=== PATIENT | female | born 1950 | race Caucasian/White ===

== ENCOUNTER 2017-12-06 11:41 | Emergency (ER) | payer OTHER ==
[~2017-12-06] VITALS: Ht 157.5 cm; Wt 63.5 kg
[~2017-12-06 11:41] MED LIST: LORA1 PO; METO50ER PO
[2017-12-06] MEDS ORDERED: LISI20 PO (15:36)
[2017-12-06] MEDS ORDERED: "\\\"STATIN\\\"" (15:36)
[2017-12-06] MEDS ORDERED: CLON.3TP (15:36)
== END 2017-12-06 15:57 | disposition home or self-care (01) ==
LOC: ER 11:41
DX: S00.83XA Contusion of other part of head, initial encounter (principal); S00.11XA Contusion of right eyelid and periocular area, initial encounter; F17.200 Nicotine dependence, unspecified, uncomplicated; Z79.899 Other long term (current) drug therapy; Z90.710 Acquired absence of both cervix and uterus; W01.0XXA Fall on same level from slipping, tripping and stumbling without subsequent striking against object, initial encounter
CPT/HCPCS: 70450; 99284

== ENCOUNTER 2020-10-23 18:43 | Emergency (ER) | payer OTHER ==
[~2020-10-23] VITALS: Ht 167.6 cm; Wt 74.8 kg
[~2020-10-23 18:43] MED LIST changes: +"\\\"STATIN\\\""; +CLON.3TP; +LISI20 PO
[2020-10-23] MEDS ORDERED: CHLO25 PO (19:48)
[2020-10-23 20:48] LABS: BASOPHILS ABSOLUTE AUTO 0.04 K/mm3 (0.00-0.23); BASOPHILS PERCENT AUTO 1 % (0-2); EOSINOPHILS ABSOLUTE AUTO 0.18 K/mm3 (0.00-0.68); EOSINOPHILS PERCENT AUTO 3 % (0-6); Hematocrit 40.5 % (33.0-51.0); IMMATURE GRAN ABSOLUTE AUTO 0.01 K/mm3 (0.00-0.10); IMMATURE GRAN PERCENT AUTO 0 % (0-1); LYMPHOCYTES ABSOLUTE AUTO 2.77 K/mm3 (0.84-5.20); LYMPHOCYTES PERCENT AUTO 44 % (21-46); MONOCYTES ABSOLUTE AUTO 0.43 K/mm3 (0.16-1.47); MONOCYTES PERCENT AUTO 7 % (4-13); Mean Corpuscular HGB 31.6 pg (26.0-34.0); Mean Corpuscular HGB Conc 32.1 g/dL (31.5-36.5); Mean Corpuscular Volume 98 fL (80-100); Mean Platelet Volume 9.8 fL (9.1-12.4); NEUTROPHILS ABSOLUTE AUTO 2.94 K/mm3 (1.96-9.15); NEUTROPHILS PERCENT AUTO 46 % (41-73); Platelet Count 269 K/mm3 (150-400); RDW Coefficient Variation 12.9 % (11.7-14.2); RDW Standard Deviation 46.1 fL (35.1-46.3); Red Blood Cell Count 4.12 M/mm3 (3.80-5.20); White Blood Cell Count 6.37 K/mm3 (4.00-11.30)
[2020-10-23 20:58] LABS: Anion Gap 12 mmol/L (6-16); Blood Urea Nitrogen 28 mg/dL (8-24); Bun/Creatinine Ratio 37.5 (12.0-20.0); CO2, Blood 24 mmol/L (21-32); Calcium, Blood 8.3 mg/dL (8.5-10.1); Chloride, Blood 105 mmol/L (98-108); Creatinine, Blood 0.75 mg/dL (0.40-1.00); Ethanol (Alcohol), Blood, Med 204 mg/dL; Glomerular Filtration Rate >60 (60-); Glucose, Blood 94 mg/dL (70-99); Potassium, Blood 3.4 mmol/L (3.5-5.5); Sodium, Blood 141 mmol/L (136-145)
== END 2020-10-23 23:00 | disposition home or self-care (01) ==
LOC: ER 18:43
PROVIDERS: Student in an Organized Health Care Education/Training Program
DX: F10.129 Alcohol abuse with intoxication, unspecified (principal); F41.0 Panic disorder [episodic paroxysmal anxiety]; F17.210 Nicotine dependence, cigarettes, uncomplicated; Z91.81 History of falling; Z79.899 Other long term (current) drug therapy
CPT/HCPCS: 70450; 80048; 85025; 96360; 99284-25; G0480; J7120

== ENCOUNTER 2020-10-24 15:43 | Emergency (ER) | payer OTHER ==
[~2020-10-24] VITALS: Ht 157.5 cm; Wt 67.6 kg
[~2020-10-24 15:43] MED LIST changes: +CHLO25 PO
[2020-10-24 16:31] LABS: BASOPHILS ABSOLUTE AUTO 0.05 K/mm3 (0.00-0.23); BASOPHILS PERCENT AUTO 1 % (0-2); EOSINOPHILS ABSOLUTE AUTO 0.11 K/mm3 (0.00-0.68); EOSINOPHILS PERCENT AUTO 2 % (0-6); Hematocrit 38.8 % (33.0-51.0); Hemoglobin 12.6 g/dL (11.5-16.0); IMMATURE GRAN ABSOLUTE AUTO 0.01 K/mm3 (0.00-0.10); IMMATURE GRAN PERCENT AUTO 0 % (0-1); LYMPHOCYTES PERCENT AUTO 29 % (21-46); MONOCYTES ABSOLUTE AUTO 0.56 K/mm3 (0.16-1.47); MONOCYTES PERCENT AUTO 8 % (4-13); Mean Corpuscular HGB 31.9 pg (26.0-34.0); Mean Corpuscular HGB Conc 32.5 g/dL (31.5-36.5); Mean Corpuscular Volume 98 fL (80-100); Mean Platelet Volume 9.5 fL (9.1-12.4); NEUTROPHILS ABSOLUTE AUTO 4.52 K/mm3 (1.96-9.15); NEUTROPHILS PERCENT AUTO 62 % (41-73); Platelet Count 259 K/mm3 (150-400); RDW Coefficient Variation 12.9 % (11.7-14.2); RDW Standard Deviation 46.8 fL (35.1-46.3); Red Blood Cell Count 3.95 M/mm3 (3.80-5.20); White Blood Cell Count 7.35 K/mm3 (4.00-11.30)
[2020-10-24 17:13] LABS: Alanine Aminotransfer (ALT/SGP 45 U/L (12-78); Albumin, Blood 3.2 g/dL (3.4-5.0); Albumin/Globulin Ratio 0.9 (0.8-1.8); Alk Phos 81 U/L (50-136); Anion Gap 14 mmol/L (6-16); Aspartate Aminotrans (AST/SGOT 36 U/L (12-37); Bilirubin, Total 0.6 mg/dL (0.1-1.0); Blood Urea Nitrogen 24 mg/dL (8-24); Bun/Creatinine Ratio 37.4 (12.0-20.0); CO2, Blood 20 mmol/L (21-32); Calcium, Blood 8.3 mg/dL (8.5-10.1); Chloride, Blood 105 mmol/L (98-108); Creatinine, Blood 0.64 mg/dL (0.40-1.00); Globulin, Blood 3.5 g/dL (2.2-4.0); Glomerular Filtration Rate >60 (60-); Glucose, Blood 123 mg/dL (70-99); Potassium, Blood 3.4 mmol/L (3.5-5.5); Sodium, Blood 139 mmol/L (136-145); Total Protein, Blood 6.7 g/dL (6.4-8.2)
[2020-10-24 19:24] LABS: International Normalized Ratio 0.96; Prothrombin Time Results 10.3 Sec (9.7-11.5)
== END 2020-10-24 20:25 | disposition home or self-care (01) ==
LOC: ER 15:43
PROVIDERS: Physician Assistant
DX: I60.9 Nontraumatic subarachnoid hemorrhage, unspecified (principal); F17.200 Nicotine dependence, unspecified, uncomplicated; Z79.899 Other long term (current) drug therapy
CPT/HCPCS: 36415; 70450; 80053; 85025; 85610; 93005; 93010; 96374; 99284-25; G0480; J3010

== ENCOUNTER 2020-11-06 19:09 | Emergency (ER) | payer OTHER ==
[~2020-11-06] VITALS: Ht 160 cm; Wt 74.8 kg
[2020-11-06 19:36] LABS: BASOPHILS ABSOLUTE AUTO 0.06 K/mm3 (0.00-0.23); BASOPHILS PERCENT AUTO 1 % (0-2); EOSINOPHILS ABSOLUTE AUTO 0.19 K/mm3 (0.00-0.68); EOSINOPHILS PERCENT AUTO 2 % (0-6); Hematocrit 33.9 % (33.0-51.0); Hemoglobin 11.1 g/dL (11.5-16.0); IMMATURE GRAN ABSOLUTE AUTO 0.04 K/mm3 (0.00-0.10); IMMATURE GRAN PERCENT AUTO 1 % (0-1); LYMPHOCYTES ABSOLUTE AUTO 3.22 K/mm3 (0.84-5.20); LYMPHOCYTES PERCENT AUTO 38 % (21-46); MONOCYTES ABSOLUTE AUTO 0.71 K/mm3 (0.16-1.47); MONOCYTES PERCENT AUTO 8 % (4-13); Mean Corpuscular HGB 32.4 pg (26.0-34.0); Mean Corpuscular HGB Conc 32.7 g/dL (31.5-36.5); Mean Corpuscular Volume 99 fL (80-100); Mean Platelet Volume 10.3 fL (9.1-12.4); NEUTROPHILS ABSOLUTE AUTO 4.34 K/mm3 (1.96-9.15); NEUTROPHILS PERCENT AUTO 51 % (41-73); Platelet Count 286 K/mm3 (150-400); RDW Coefficient Variation 12.8 % (11.7-14.2); Red Blood Cell Count 3.43 M/mm3 (3.80-5.20); White Blood Cell Count 8.56 K/mm3 (4.00-11.30)
[2020-11-06 19:58] LABS: Anion Gap 10 mmol/L (6-16); Blood Urea Nitrogen 24 mg/dL (8-24); Bun/Creatinine Ratio 44.4 (12.0-20.0); CO2, Blood 26 mmol/L (21-32); Calcium, Blood 8.4 mg/dL (8.5-10.1); Chloride, Blood 103 mmol/L (98-108); Creatinine, Blood 0.54 mg/dL (0.40-1.00); Glomerular Filtration Rate >60 (60-); Glucose, Blood 85 mg/dL (70-99); Potassium, Blood 3.9 mmol/L (3.5-5.5); Sodium, Blood 139 mmol/L (136-145)
[2020-11-06 19:59] LABS: Ethanol (Alcohol), Blood, Med 301 mg/dL
[2020-11-06 20:38] LABS: Source, Urine Clean Catch
[2020-11-06 20:44] LABS: Appearance, Urine Clear (Clear); Bilirubin, Urine Neg (Neg); Blood, Urine Neg (Neg); Color, Urine Yellow (P-Yellow); Glucose Qualitative, Urine Neg (Neg); Ketones, Urine Neg (Neg); Leukocyte Esterase, Urine 2+ (Neg); Nitrite, Urine Pos (Neg); Protein, Urine Neg (Neg); Urobilinogen, Urine NORM (Normal)
[2020-11-06 20:45] LABS: Bacteria Many /hpf; Red Blood Cells, Urine 0-2 /hpf (0-2); Squamous Epithelial Cells Few /hpf (Few)
[2020-11-07] MEDS ORDERED: CIPR500 PO (00:38)
== END 2020-11-07 00:34 | disposition home or self-care (01) ==
LOC: ER 19:09 → EOR 21:27 → ER 11-07 00:34
PROVIDERS: Emergency Medicine
DX: F10.129 Alcohol abuse with intoxication, unspecified (principal); N39.0 Urinary tract infection, site not specified; F17.200 Nicotine dependence, unspecified, uncomplicated; Z79.899 Other long term (current) drug therapy; Y90.8 Blood alcohol level of 240 mg/100 ml or more
CPT/HCPCS: 70450; 80048; 81001; 85025; 87077; 87086; 87186; 99285-25; A9270; G0480; P9612

== ENCOUNTER 2022-08-23 08:45 | Day surgery (SDC) | payer OTHER ==
[~2022-08-23] VITALS: Ht 157.5 cm; Wt 74.2 kg
[~2022-08-23 08:45] MED LIST changes: +ALPR.25 PO; +CIPR500 PO; +ESZO2 PO; +NEBI5 PO
--- NOTE | 2022-08-23 09:27 | NUR ---
08/23/22 0927 Anne-Marie Odom 0913 PLEDGET AT [id number]
== END 2022-08-23 10:34 | disposition home or self-care (01) ==
LOC: ORSCSDS 08:45
PROVIDERS: Ophthalmology
PROC: 08DJ3ZZ Extraction of Right Lens, Percutaneous Approach (ICD-10-PCS; principal; 2022-08-23 10:00)
DX: H25.11 Age-related nuclear cataract, right eye (principal); I10 Essential (primary) hypertension; F41.9 Anxiety disorder, unspecified; Z79.899 Other long term (current) drug therapy
CPT/HCPCS: J2001; J2250; J3010; J3301; J7040; V2632

== ENCOUNTER 2022-11-22 06:45 | Day surgery (SDC) | payer OTHER ==
[~2022-11-22] VITALS: Ht 157.5 cm; Wt 73.8 kg
[2022-11-22] MEDS ORDERED: HYDR1TAB94 (07:00)
[2022-11-22] MEDS ORDERED: Cymbalta20 MG (07:00)
[2022-11-22] MEDS ORDERED: TRELEGY ELLIPT1 EACH (07:00)
[2022-11-22] MEDS ORDERED: OXYB5 (07:01)
[2022-11-22] MEDS ORDERED: PROAIR DIGIHAL90 MCG (07:01)
--- NOTE | 2022-11-22 07:09 | NUR ---
11/22/22 0709 Sravanthi Lorenz TETRACAINE TO LEFT EYE @ 0700 PLEDGET TO LEFT EYE @ 0702 BY [facility].ALBERTINAG
--- NOTE | 2022-11-22 09:05 | NUR ---
11/22/22 0905 Ashtyn Campa 0840: PATIENT ASSISTED TO BR IN WC WITH RN IN BR FOR SBA.
== END 2022-11-22 08:57 | disposition home or self-care (01) ==
LOC: ORSCSDS 06:45
PROVIDERS: Ophthalmology
PROC: 08DK3ZZ Extraction of Left Lens, Percutaneous Approach (ICD-10-PCS; principal; 2022-11-22 08:00)
DX: H25.12 Age-related nuclear cataract, left eye (principal); I10 Essential (primary) hypertension; R06.02 Shortness of breath; F17.210 Nicotine dependence, cigarettes, uncomplicated; Z79.899 Other long term (current) drug therapy
CPT/HCPCS: J2001; J3301; J7040; V2632

== ENCOUNTER 2023-01-13 20:01 | Observation (INO) | payer OTHER ==
[~2023-01-13] VITALS: Ht 157.5 cm; Wt 72.5 kg
[~2023-01-13 20:01] MED LIST changes: +Cymbalta20 MG; +HYDR1TAB94; +OXYB5; +PROAIR DIGIHAL90 MCG; +TRELEGY ELLIPT1 EACH
[2023-01-13 20:40] LABS: Hematocrit 41.5 % (33.0-51.0); Hemoglobin 13.3 g/dL (11.5-16.0); Mean Corpuscular HGB 29.7 pg (26.0-34.0); Mean Corpuscular Volume 93 fL (80-100); Mean Platelet Volume 10.2 fL (9.1-12.4); Platelet Count 324 K/mm3 (150-400); RDW Coefficient Variation 13.9 % (11.7-14.2); RDW Standard Deviation 47.4 fL (35.1-46.3); Red Blood Cell Count 4.48 M/mm3 (3.80-5.20); White Blood Cell Count 10.01 K/mm3 (4.00-11.30)
[2023-01-13 20:58] LABS: Ethanol (Alcohol), Blood, Med <3 mg/dL
[2023-01-13 21:04] LABS: Base Excess Venous 4.6 mmol/L; Bicarbonate Venous 27.1 mmol/L (24.0-30.0); PCO2 Venous 56.2 mmHg (38-42); pH Blood Venous 7.34 (7.34-7.37)
[2023-01-13 21:04] LABS: Acetaminophen, Random <2.0 ug/mL (10.0-30.0); Alanine Aminotransfer (ALT/SGP 14 U/L (12-78); Albumin/Globulin Ratio 0.7 (0.8-1.8); Alk Phos 65 U/L (50-136); Anion Gap 6 mmol/L (6-16); Aspartate Aminotrans (AST/SGOT 13 U/L (12-37); Bilirubin, Total 0.2 mg/dL (0.1-1.0); Blood Urea Nitrogen 27 mg/dL (8-24); Bun/Creatinine Ratio 41.2 (12.0-20.0); CO2, Blood 28 mmol/L (21-32); Calcium, Blood 8.7 mg/dL (8.5-10.1); Chloride, Blood 101 mmol/L (98-108); Creatinine, Blood 0.66 mg/dL (0.40-1.00); Globulin, Blood 4.2 g/dL (2.2-4.0); Glomerular Filtration Rate 94 (60-); Glucose, Blood 151 mg/dL (70-99); Potassium, Blood 3.9 mmol/L (3.5-5.5); Sodium, Blood 135 mmol/L (136-145); Total Protein, Blood 7.2 g/dL (6.4-8.2)
[2023-01-13 21:22] LABS: BAND PERCENT MAN 3 % (0-8); BASOPHILS PERCENT MAN 0 % (0-2); EOSINOPHILS PERCENT MAN 0 % (0-6); LYMPHOCYTES PERCENT MAN 14 % (21-46); METAMYELOCYTE PERCENT MAN 1 % (0-0); MONOCYTES PERCENT MAN 13 % (4-13); SEG NEUTROPHILS PERCENT MAN 69 % (41-73); TOTAL CELLS COUNTED 100
[2023-01-13 22:28] LABS: Source, Urine Straight Cath
[2023-01-13 22:30] LABS: Bilirubin, Urine Neg (Neg); Blood, Urine 1+ (Neg); Glucose Qualitative, Urine Neg (Neg); Ketones, Urine Neg (Neg); Leukocyte Esterase, Urine Neg (Neg); Nitrite, Urine Pos (Neg); Protein, Urine 2+ (Neg); Urobilinogen, Urine NORM (Normal)
[2023-01-13 22:36] LABS: Appearance, Urine Clear (Clear); Color, Urine Yellow (P-Yellow)
[2023-01-13 22:37] LABS: Bacteria Many /hpf; Red Blood Cells, Urine 0-2 /hpf (0-2); Squamous Epithelial Cells Few /hpf (Few); White Blood Cells, Urine 0-2 /hpf (0-5)
[2023-01-13 22:49] LABS: U Amphetamine Screen Not Detected; U Barbituate Screen Not Detected; U Benzodiazapine Screen DETECTED; U Buprenorphine Screen Not Detected; U Cannabinoids Screen Not Detected; U Cocaine Screen Not Detected; U Methadone Screen Not Detected; U Methamphetamine Screen Not Detected; U Opiates Screen DETECTED; U Oxycodone Screen DETECTED; U Phencyclidine Screen Not Detected; U Propoxyphene Screen Not Detected
[2023-01-13 22:50] LABS: Influenza A, PCR NEGATIVE (NEGATIVE); Influenza B, PCR NEGATIVE (NEGATIVE); Resp Syncytial Virus, PCR NEGATIVE (NEGATIVE); SARS-Cov-2 (COVID-19) PCR, MMC NEGATIVE (NEGATIVE)
[2023-01-13] MEDS ORDERED: MONDOXYNE NL100 MG PO (23:33)
--- NOTE | 2023-01-14 | NUR ---
ADMIT NOTE; PT ARRIVES TO THE FLOOR VIA ED GURNERY. THE PT IS AXO X2-3, WITH SOME CONFUSION. THE PT IS AWAKE BUT SLOW TO RESPOND AND VERY [place]. THE PT IS ON 3L NC UPON ADMIT SATING 91%. THE PT HAS A CONGESTED SOUNDING COUGH UPON ADMIT, BREATHING IS NON LABORED. THE PT DENIES ANY PAIN OR ANY ACUTE NEEDS AT THIS TIME. UPON ADMIT THE PT IS TRANSFERED TO THE HOSPITAL BED FROM THE ED GURNEY VIA SLIDER SHEET.
--- NOTE | 2023-01-14 05:48 | NUR ---
SHIFT SUMMARY; NO ACUTE CHANGES OVERNIGHT. THE PT IS AXO X2-3, FPRGETFULLNESS. THE PT IS A 1 ASSIST WITH A FWW TO THE BATHROOM. THE PT DOES NOT ALWAYS USE A CALL LIGHT, THEREFORE THE BED ALARM IS ON DUE TO THE PTS WEAKNESS AND INSTABILITY. THE PT HAS 3L NC ON, O2 SATS HAVE BEEN GREATER THAN 92%. THE PT DENIES ANY SOB, PAIN, CHEST PAIN/PRESSURE OR N/V THIS SHIFT. CURRENTLY THE PT IS SLEEPING IN BED WITH THE BED IN THE LOWEST POSWITION AND THE CALL LIGHT AT BEDSIDE.
--- NOTE | 2023-01-14 12:51 | NUR ---
PT REFUSED PE STUDY. STATES SHE WANTS TO TALK TO HER PCP AND WILL DO STUDIES OUTPT IF NEED BE.
[2023-01-14] MEDS ORDERED: METPRE4DP PO (15:10)
--- NOTE | 2023-01-14 16:26 | NUR ---
DISCHARGE: PT D/C VIA AUTOMOBILE WITH DAUGHTER. PORTABLE O2 BROUGHT TO ROOM. PT PULLED OUT IV PRIOR TO D/C. DISCHARGE INSTRUCTIONS GONE OVER BY DARLINE MIRELES RN. NEW RX MEDS SENT OVER TO [facility] IN [place]. ALL BELONGINGS SENT WITH PT.
== END 2023-01-14 15:52 | disposition home or self-care (01) ==
LOC: ER 20:01 → MEDS 20:02 → ER 23:44 → MEDS 23:44 → ERHOLD 23:44 → MEDS 23:58
PROVIDERS: Emergency Medicine; ADMIT Hospitalist
DX: J96.01 Acute respiratory failure with hypoxia (principal); J18.9 Pneumonia, unspecified organism; J44.9 Chronic obstructive pulmonary disease, unspecified; R77.8 Other specified abnormalities of plasma proteins; I10 Essential (primary) hypertension; Z20.822 Contact with and (suspected) exposure to COVID-19; Z79.899 Other long term (current) drug therapy; F17.210 Nicotine dependence, cigarettes, uncomplicated
CPT/HCPCS: 0241U; 36415; 71045; 80053; 81001; 82803; 83880; 84443; 84484; 85025; 85379; 93005; 93010; 94640; 94664; 94760; 94761; A9270; G0480; J0456; J0696; J2405; J2930; J7030; J7050

== ENCOUNTER 2023-08-13 15:22 | Inpatient (IN) | payer OTHER ==
[~2023-08-13] VITALS: Ht 160 cm; Wt 72.6 kg
[~2023-08-13 15:22] MED LIST changes: +METPRE4DP PO; +MONDOXYNE NL100 MG PO; -PROAIR DIGIHAL90 MCG; +PROAIR DIGIHAL90 MCG INH
[2023-08-13 16:06] LABS: BASOPHILS ABSOLUTE AUTO 0.06 K/mm3 (0.00-0.23); BASOPHILS PERCENT AUTO 1 % (0-2); EOSINOPHILS ABSOLUTE AUTO 0.15 K/mm3 (0.00-0.68); EOSINOPHILS PERCENT AUTO 1 % (0-6); Hematocrit 41.9 % (33.0-51.0); Hemoglobin 13.7 g/dL (11.5-16.0); IMMATURE GRAN ABSOLUTE AUTO 0.27 K/mm3 (0.00-0.10); IMMATURE GRAN PERCENT AUTO 2 % (0-1); LYMPHOCYTES ABSOLUTE AUTO 1.89 K/mm3 (0.84-5.20); LYMPHOCYTES PERCENT AUTO 15 % (21-46); MONOCYTES ABSOLUTE AUTO 1.18 K/mm3 (0.16-1.47); MONOCYTES PERCENT AUTO 9 % (4-13); Mean Corpuscular HGB 30.7 pg (26.0-34.0); Mean Corpuscular HGB Conc 32.7 g/dL (31.5-36.5); Mean Corpuscular Volume 94 fL (80-100); Mean Platelet Volume 9.8 fL (9.1-12.4); NEUTROPHILS ABSOLUTE AUTO 9.04 K/mm3 (1.96-9.15); NEUTROPHILS PERCENT AUTO 72 % (41-73); NRBC ABSOLUTE 0.04 K/mm3 (0.00-0.02); NRBC Auto 0.3 /100 WBC (0.0-0.2); Platelet Count 315 K/mm3 (150-400); RDW Standard Deviation 47.9 fL (35.1-46.3); Red Blood Cell Count 4.46 M/mm3 (3.80-5.20); White Blood Cell Count 12.59 K/mm3 (4.00-11.30)
[2023-08-13 16:25] LABS: Albumin/Globulin Ratio 0.6 (0.8-1.8); Bilirubin, Total 0.3 mg/dL (0.1-1.0); Calcium, Blood 9.1 mg/dL (8.5-10.1); Creatinine, Blood 0.59 mg/dL (0.40-1.00); Globulin, Blood 4.7 g/dL (2.2-4.0); Potassium, Blood 3.6 mmol/L (3.5-5.5); Total Protein, Blood 7.7 g/dL (6.4-8.2)
[2023-08-13] MEDS ORDERED: CITALOPRAM HBR10 MG PO (21:29)
[2023-08-13] MEDS ORDERED: Norco 5-325 Ta1 EACH PO (21:31)
[2023-08-13 21:33] LABS: Base Excess Venous 7.7 mmol/L; Bicarbonate Venous 30.7 mmol/L (24.0-30.0); PCO2 Venous 42.8 mmHg (38-42); pH Blood Venous 7.47 (7.34-7.37)
[2023-08-13 22:52] VITALS: BP 169/85
[2023-08-13 22:57] LABS: Adenovirus Not Detected (NOT DETECT); Coronavirus 229E Not Detected (NOT DETECT); Coronavirus HKU1 Not Detected (NOT DETECT); Coronavirus NL63 Not Detected (NOT DETECT); Coronavirus OC43 Not Detected (NOT DETECT); Human Rhinovirus/Enterovirus Detected (NOT DETECT)
[2023-08-13 22:58] LABS: Bordetella pertussis Not Detected (NOT DETECT); Chlamydophila pneumoniae Not Detected (NOT DETECT); Human Metapneumovirus Not Detected (NOT DETECT); Influenza A/2009-H1 Not Detected (NOT DETECT); Influenza A/H1 Not Detected (NOT DETECT); Influenza A/H3 Not Detected (NOT DETECT); Influenza B Not Detected (NOT DETECT); Mycoplasma pneumoniae Not Detected (NOT DETECT); Parainfluenza Virus 1 Not Detected (NOT DETECT); Parainfluenza Virus 2 Not Detected (NOT DETECT); Parainfluenza Virus 3 Not Detected (NOT DETECT); Parainfluenza Virus 4 Not Detected (NOT DETECT); Respiratory Syncytial Virus Not Detected (NOT DETECT); SARS-Cov-2 (COVID-19), BioFire Not Detected (NOT DETECT)
[2023-08-13] MEDS ORDERED: TRELEGY ELLIPT1 EAC1 INH (23:04)
[2023-08-14] VITALS (8 sets, daily range): BP systolic 147–184; BP diastolic 79–93
--- NOTE | 2023-08-14 01:50 | NUR ---
UPDATE PT NOTED TO BE PLACING 3 PILLS ON BEDSIDE TABLE AND ASKING FOR WATER TO TAKE SAID MEDICATIONS. UPON FURTHER INVESTIGATION, PT HAD BOTTLE OF PRESCRIBED NORCO BURIED IN HER PURSE. PT EDUCATED ON NEED TO NOT TAKE HOME MEDICATIONS WHILE ADMITTED IN THE HOSPITAL AND INFORMED ON THE POTENTIAL HAZARDS OF TAKING MEDICATIONS WITHOUT STAFF BEING AWARE. PT'S HOME MEDICATIONS PLACED IN GREEN RX BAG AND PLACED IN SECURE MEDICATION DRAWER. PT ALSO NOTED TO HAVE SOILED HERSELF IN URINE. THIS RN AND PCT MICHELL VIERA ASKED PT SEVERAL TIMES TO CHANGE INTO CLEAN CLOTHES/GOWN PROVIDED. PT ALSO EDUCATED ON HEALTH RISKS POSED BY SITTING IN SOILED CLOTHES. PT CONTINUED TO REFUSE TO CHANGE CLOTHES AND STATES, "ILL BE OUT OF HERE IN THE MORNING SO IT DOESNT MATTER". WILL CONTINUE TO ATTEMPT TO CONVINCE PT TO CHANGE INTO CLEAN CLOTHES.
[2023-08-14 05:34] LABS: BASOPHILS ABSOLUTE AUTO 0.03 K/mm3 (0.00-0.23); BASOPHILS PERCENT AUTO 0 % (0-2); EOSINOPHILS PERCENT AUTO 0 % (0-6); Hematocrit 40.6 % (33.0-51.0); Hemoglobin 13.2 g/dL (11.5-16.0); IMMATURE GRAN ABSOLUTE AUTO 0.17 K/mm3 (0.00-0.10); IMMATURE GRAN PERCENT AUTO 2 % (0-1); LYMPHOCYTES ABSOLUTE AUTO 0.61 K/mm3 (0.84-5.20); LYMPHOCYTES PERCENT AUTO 6 % (21-46); MONOCYTES ABSOLUTE AUTO 0.14 K/mm3 (0.16-1.47); MONOCYTES PERCENT AUTO 1 % (4-13); Mean Corpuscular HGB 30.4 pg (26.0-34.0); Mean Corpuscular HGB Conc 32.5 g/dL (31.5-36.5); Mean Corpuscular Volume 94 fL (80-100); Mean Platelet Volume 9.6 fL (9.1-12.4); NEUTROPHILS ABSOLUTE AUTO 9.76 K/mm3 (1.96-9.15); NEUTROPHILS PERCENT AUTO 91 % (41-73); NRBC ABSOLUTE 0.02 K/mm3 (0.00-0.02); NRBC Auto 0.2 /100 WBC (0.0-0.2); Platelet Count 322 K/mm3 (150-400); RDW Coefficient Variation 13.8 % (11.7-14.2); RDW Standard Deviation 47.1 fL (35.1-46.3); Red Blood Cell Count 4.34 M/mm3 (3.80-5.20); White Blood Cell Count 10.71 K/mm3 (4.00-11.30)
--- NOTE | 2023-08-14 05:42 | NUR ---
PT NOTE PT REFUSED TO CHANGE OUT OF CLOTHES ON MULTIPLE OCCASIONS INTO HOSPITAL CLOTHING. PT CLOTHES SMELLS SOILED, NURSE WAS NOTIFIED EARLIER IN THE SHIFT.
[2023-08-14 06:01] LABS: Albumin, Blood 2.8 g/dL (3.4-5.0); Albumin/Globulin Ratio 0.6 (0.8-1.8); Bilirubin, Total 0.4 mg/dL (0.1-1.0); Bun/Creatinine Ratio 26.2 (12.0-20.0); Calcium, Blood 8.7 mg/dL (8.5-10.1); Creatinine, Blood 0.65 mg/dL (0.40-1.00); Globulin, Blood 4.7 g/dL (2.2-4.0); Magnesium, Blood 1.8 mg/dL (1.6-2.4); Potassium, Blood 4.1 mmol/L (3.5-5.5); Total Protein, Blood 7.5 g/dL (6.4-8.2)
--- NOTE | 2023-08-14 06:42 | NUR ---
SHIFT SUMMARY/ARRIVAL TO MED FLOOR RECEIVED REPORT FROM ED RN JEANA QUEZADA, PT SHORTLY ARRIVED TO ROOM 337 WITH DAUGHTER ~2243 YESTERDAY PM. TRANSFERRED FROM [facility] TO HOSPITAL BED VIA SLIDE SHEET. A/Ox4 AND MOSTLY COOPERATIVE WITH CARE, BUT CAN BE VERY IMPULSIVE AT TIMES. ANSWERS QUESTIONS APPROPRIATELY AND ABLE TO MAKE HER NEEDS KNOWN. CARDIAC, HR RANGING 70-100 S WITH NO COMPLAINTS OF CP OR PRESSURE T/O THE NIGHT. SBP HAS BEEN ELEVATED RANGING 160'S. PRN HYDRALAZINE ORDERED FOR SBP >180. RESPIRATORY, SPO2 RANGING 88-94% ON 3-5L VIA NC. REPORTS MINIMAL SOB AT REST, INCREASED WORK OF BREATHING NOTED WITH AMBULATION. CONTINUES TO BE WHEEZY T/O, SCHEDULED BREATHING TREATMENTS ORDERED. GI/, ABLE TO AMBULATE TO BATHROOM TO VOID LIGHT YELLOW URINE. ABD SOFT/NON-TENDER WITH BS PRESENT IN ALL QUADRANTS. PAIN HAS BEEN WELL MANAGED PER EMAR. SLIGHTLY UNSTEADY ON FEET, BED ALARM USED TO MAINTAIN PT SAFETY. ASSESSED PT FOR RISKS OF ANY IGNITION SOURCES WELL BEHAVIORS FOR INCREASED RISKS OF FIRE DANGER. PT EDUCATED ON COMMON SOURCES OF IGNITION WELL NEED TO KEEP A SAFE ENVIRONMENT. NO NEW ORDERS AT THIS TIME, WILL REPORT TO ONCOMING RN. KIANA REYES OF THIS NOTE
--- NOTE | 2023-08-14 14:11 | NUR ---
CALLED DR SHIN- PT HAS A NEW ORDER FOR IV LASIX THAT DOES NOT START UNTIL TOMORROW MORNING AT 0900. CALLED TO CLARIFY THAT DR DUNN NOT WANT THIS MED STARTED UNTIL TOMORROW. ORDER RECIEVED TO GIVE FIRST DOSE NOW AND THEN DAILY. ORDER CHANGED IN ORDER MANAGEMENT.
--- NOTE | 2023-08-14 18:24 | NUR ---
SHIFT SUMMARY- PT HAS HAD AN ECHO. SHE WAS MEDICATED FOR PAIN WITH PO TRAMADOL. PT USUALLY TAKES NORCO 5/325 AT HOME. PT HAD HER NORCO AND XANAX WITH HER. BOTH BOTTLES TAKEN TO PHARMACY, COUNTED AND LOCKED IN THE SAIF. TICKET TO RETRIEVE THE MEDS ARE IN THE FRONT OF THE CHART. PT SPOKE TO HER DAUGHTER ON THE PHONE EARLIER TODAY BBECAUSE SHE WANTED TO GO HOME. HER DAUGHTER TOLD HER TO STAY HERE AND DO WHAT THE DOCTORS TOLD HER TO DO. PT SEEMED TO RELAX INTO THE HOSPITAL STAY AND STARTED TELLING PEOPLE SHE IS GOING HOME TOMORROW IN [place] OF TELLING THEM SHE WANTS TO GO HOME TODAY. PT ON IV LASIX AND IV SOLUMEDROL. SHE SEEMS TO BE SUNDOWNING A LITTLE THIS EVENING OR RESPONDDING TO THE STEROIDS. SHE IS MORE IRRITABLE AND UP MOVING AROUND MORE IN HER ROOM. AT THIS TIME THE PT IS UP IN THE ROOM BRUSHING HER TEETH AND APPEARS TO BE PREPARING FOR BED. IV IN THE RIGHT HAND FLUSHES WELL. NO CURRENT DISTRESS NOTED.
--- NOTE | 2023-08-15 04:40 | NUR ---
PATIENT IS A/Ox3-4, [place], COOPERATIVE WITH CARES, OCCASIONAL IMPULSIVITY, IS EASILY REDIRECTABLE. NO C/O PAIN NOR DISCOMFORT STATED. C/O INTERMITTENT SOB WHEN AMBULATING TO AND FROM BATHROOM. ASLEEP OFF AND ON THROUGHOUT SHIFT. IS INDEPENDENT IN ROOM. NO ACUTE CHANGES NOTED OVERNIGHT. BED LOCKED AND IN LOWEST POSITION, CALL LIGHT WITHIN REACH.
[2023-08-15 07:49] VITALS: BP 147/92
[2023-08-15] MEDS ORDERED: BENZ100A PO (11:01)
[2023-08-15] MEDS ORDERED: GUAI600T33 PO (11:02)
[2023-08-15] MEDS ORDERED: Prednisone10 MG PO (11:04)
[2023-08-15 11:16] LABS: Albumin/Globulin Ratio 0.6 (0.8-1.8); Bilirubin, Total 0.5 mg/dL (0.1-1.0); Bun/Creatinine Ratio 44.7 (12.0-20.0); Calcium, Blood 9.5 mg/dL (8.5-10.1); Creatinine, Blood 0.63 mg/dL (0.40-1.00); Globulin, Blood 4.9 g/dL (2.2-4.0); Potassium, Blood 3.6 mmol/L (3.5-5.5); Total Protein, Blood 7.9 g/dL (6.4-8.2)
== END 2023-08-15 13:40 | disposition home or self-care (01) | DRG 291 ==
LOC: ER 15:22 → MEDS 22:35
PROVIDERS: Family Medicine; Nurse Practitioner Acute Care; Physician Assistant; ADMIT Internal Medicine
DX: I11.0 Hypertensive heart disease with heart failure (principal); I50.31 Acute diastolic (congestive) heart failure; J96.01 Acute respiratory failure with hypoxia; J44.1 Chronic obstructive pulmonary disease with (acute) exacerbation; E87.1 Hypo-osmolality and hyponatremia; R65.10 Systemic inflammatory response syndrome (SIRS) of non-infectious origin without acute organ dysfunction; R74.01 Elevation of levels of liver transaminase levels; F41.9 Anxiety disorder, unspecified; F17.210 Nicotine dependence, cigarettes, uncomplicated; B97.89 Other viral agents as the cause of diseases classified elsewhere; K76.1 Chronic passive congestion of liver; R73.9 Hyperglycemia, unspecified; Z20.822 Contact with and (suspected) exposure to COVID-19; H91.90 Unspecified hearing loss, unspecified ear; Z90.710 Acquired absence of both cervix and uterus; Z79.51 Long term (current) use of inhaled steroids; Z79.899 Other long term (current) drug therapy; W19.XXXA Unspecified fall, initial encounter
CPT/HCPCS: 0202U; 36415; 71046; 80053; 82803; 83735; 83880; 84145; 84484; 85025; 93005; 93010; 93306; 94640; 94644; 94664; 94760; 94761; 94762; 96374; 96375; 99285-25; A9270; J0360; J0456; J1650; J1940; J2930; J7050